=== PATIENT | female | born 1980 | race African-American/Black ===

== ENCOUNTER → 2021-06-16 11:52 | Outpatient (BNVA) | payer OTHER, SELFPAY | PROVIDERS: PCP Internal Medicine; Visit Provider Physician Assistant | DX: E66.01 Morbid (severe) obesity due to excess calories (principal); R40.0 Somnolence | CPT/HCPCS: 99202 ==

== ENCOUNTER 2021-06-18 07:44 | Outpatient (REF) | payer OTHER, SELFPAY ==
--- NOTE | ~2021-06-18 | XR_ITS ---
EXAMINATION: XR CHEST CLINICAL INFORMATION: Preprocedure COMPARISON: None TECHNIQUE: 2 views of the chest were obtained. FINDINGS: No significant abnormality is noted involving the heart, lungs, mediastinum, bony thorax or soft tissues. XR/XR chest 2V IMPRESSION: Unremarkable examination.
--- NOTE | 2021-06-18 07:50 | ECG_ITS ---
Test Reason : preop Z01.818 Blood Pressure : / mmHG Vent. Rate : 074 BPM Atrial Rate : 074 BPM P-R Int : 134 ms QRS Dur : 082 ms QT Int : 402 ms P-R-T Axes : 061 015 024 degrees QTc Int : 446 ms Normal sinus rhythm Normal ECG No previous ECGs available Referred By: Soniya Correa Electronically Signed By:SHINE BLACKWELL
[2021-06-18 08:45] LABS: Basophils Percent Auto 0.2 % (0-2); Eosinophils Absolute Auto 0.2 X10*3/uL (0.0-0.4); Eosinophils Percent Auto 2.3 % (0-4); Hematocrit 37.7 % (37-47); Hemoglobin 11.8 g/dl (12.0-16.0); Imm Gran Abs Auto 0.04 X10*3/uL (0.00-0.03); Imm Gran Pct Auto 0.4 % (0.0-0.4); Lymphocytes Absolute Auto 2.6 X10*3/uL (1.2-4.9); Lymphocytes Percent Auto 26.9 % (20-40); MANUAL DIFF FLAG SCAN; Mean Corpuscular HGB Conc 31.3 g/dl (31.0-35.0); Mean Corpuscular Hemoglobin 25.4 pg (27.0-33.0); Mean Corpuscular Volume 81.1 fL (80-98); Monocytes Absolute Auto 0.5 X10*3/uL (0.1-1.2); Monocytes Percent Auto 5.2 % (2-11); Neutrophils Absolute Auto 6.4 X10*3/uL (2.0-8.3); PLT CLUMP 1; Red Blood Count 4.65 X10*6/uL (4.20-5.50); SCAN SMEAR FLAG 1
[2021-06-18 09:03] LABS: White Blood Count 9.8 X10*3/uL (4.8-10.8)
[2021-06-18 09:04] LABS: Platelet Count 192 X10*3/uL (160-400); SLIDE REVIEW VERIFIED
[2021-06-18 09:10] LABS: Alanine Aminotransferase 27 U/L (0-31); Alkaline Phosphatase 122 U/L (39-117); Anion Gap 15 (12-20); Aspartate Amino Transferase 33 U/L (5-31); Bilirubin Total 0.3 mg/dL (0.0-1.0); Blood Urea Nitrogen 9 mg/dL (9-16); C Reactive Protein 3.81 mg/dL (< or = 0.50); Calcium 9.3 mg/dL (8.4-10.2); Carbon Dioxide 23 mmol/L (22-29); Chloride 105 mmol/L (96-108); Cholesterol 177 mg/dL; Estimated Glomerular Filt Rate > 60; Glucose Random 108 mg/dL (60-115); HDL Cholesterol 47 mg/dL; Iron 71 mcg/dL (30-160); LDL Cholesterol Calculated 108 mg/dl; Percent Iron Saturation 18 % (15-50); Potassium 4.6 mmol/L (3.3-5.1); Sodium 138 mmol/L (135-145); Total Iron Binding Capacity 395 mcg/dL (228-428); Total Protein 7.7 g/dL (6.5-8.0); Triglycerides 110 mg/dL; Unsaturated Iron Binding 324 ug/dL
[2021-06-18 09:36] LABS: Ferritin 76 ng/mL (10-122); TSH reflex Free T4 1.55 uIU/mL (0.32-4.0); Vitamin D 25-OH Total 21.4 ng/mL (>30)
[2021-06-18 10:17] LABS: Estimated Average Glucose 117 mg/dL; Hemoglobin A1c % 5.7 %
[2021-06-18 10:23] LABS: Folate 10.7 ng/mL (> or = 4.0); Vitamin B12 450 pg/mL (200-900)
[2021-06-20 10:33] LABS: Calcium (PTHI) 9.4
[2021-06-20 12:07] LABS: H Pylori Breath Test Positive (Negative)
[2021-06-21 13:40] LABS: Zinc 76 mcg/dL (60-130)
[2021-06-23 18:12] LABS: Vitamin A 36 mcg/dL (38-98)
[2021-06-24 16:07] LABS: Vitamin B1 <6 nmol/L (8-30)
== END 2021-06-18 07:45 | disposition home or self-care (01) ==
LOC: HO.XRAY 07:44
PROVIDERS: Visit Provider Physician Assistant
DX: Z01.818 Encounter for other preprocedural examination (principal); E66.01 Morbid (severe) obesity due to excess calories; R40.0 Somnolence; Z11.0 Encounter for screening for intestinal infectious diseases
CPT/HCPCS: 36415; 71046; 80053; 80061; 82306; 82607; 82728; 82746; 83013; 83036; 83525; 83540; 83970; 84425; 84443; 84590; 84630; 85025; 86140; 93005; 99211

== ENCOUNTER → 2021-07-09 08:03 | Outpatient (BNVA) | payer OTHER, SELFPAY | PROVIDERS: Visit Provider Surgery ==

== ENCOUNTER → 2021-07-16 08:04 | Outpatient (BNVA) | payer OTHER, SELFPAY | PROVIDERS: PCP Internal Medicine; Visit Provider Dietitian, Registered | DX: E66.01 Morbid (severe) obesity due to excess calories (principal) | CPT/HCPCS: 97802 ==

== ENCOUNTER → 2021-07-22 07:31 | Outpatient (REF) | payer OTHER, SELFPAY ==
--- NOTE | ~2021-07-22 | FL_ITS ---
EXAMINATION: XR GI SERIES CLINICAL INFORMATION: Obesity. COMPARISON: None TECHNIQUE: Upper GI was performed using thin and thick barium and effervescent granules. FINDINGS: Esophageal motility is normal. No hiatal hernia or reflux is seen. The stomach and duodenum are normal-appearing. No fold thickening, mass, ulcer, or stricture is seen. FLUOROSCOPY TIME: 0.7 minutes DOSE AREA PRODUCT: 10.719 uGy-m2 (microgray-meter squared) FL/FL upper GI series IMPRESSION: Unremarkable examination.
--- NOTE | ~2021-07-22 | US_ITS ---
EXAMINATION: US COMPLETE ABDOMEN WITH LIVER ELASTOGRAPHY CLINICAL INFORMATION: Morbid obesity COMPARISON: None. TECHNIQUE: Real-time imaging of the abdominal viscera. Noninvasive ultrasound liver fibrosis assessment is performed using Terrence ElastPQ point quantification shear wave elastography (pSWE) with a C5-2 MHz transducer. Multiple elastography samples are obtained. FINDINGS: PANCREAS: Obscured by overlying bowel gas ABDOMINAL AORTA: Visualized segments are normal in caliber. INFERIOR VENA CAVA: Visualized portions are normal. LIVER: Hepatomegaly is present. There is diffusely increased echogenicity consistent with fatty infiltration. No focal mass is seen. No intrahepatic bile duct dilatation is present. The right lobe measures 21.2 cm in length. The left lobe measures 15.0 cm in length. Portal flow is hepatopedal Shear wave liver elastography median stiffness is 1.33 m/s (reference: normal median stiffness is 1.3 m/s or less). IQR/median stiffness to assess sampling precision is 0.08 (reference: good quality data set is IQR/median stiffness of 0.15 or less). GALLBLADDER: Normal. The gallbladder is physiologically distended without evidence of stones, sludge, polyps, wall thickening or pericholecystic fluid. COMMON BILE DUCT: Normal in caliber measuring 0.3 cm in diameter. RIGHT KIDNEY: Normal. No hydronephrosis. No renal calculi or focal parenchymal lesions. The kidney measures 13.1 cm in maximum dimension. LEFT KIDNEY: Normal. No hydronephrosis. No renal calculi or focal parenchymal lesions. The kidney measures 12.8 cm in maximum dimension. SPLEEN: Normal. The spleen measures 11.9 cm in maximum dimension. FREE FLUID: None. US/US abdomen comp w elastography IMPRESSION: 1. Hepatomegaly with fatty infiltration. 2. Liver elastography: Measurements are consistent with a high probability of normal liver stiffness. REFERENCE: Society of [employer] in Ultrasound Liver Stiffness Thresholds (2020): LIVER STIFFNESS THRESHOLDS: *Liver Stiffness equal or less than 1.3 m/s: High probability of being normal. *Liver Stiffness less than 1.7 m/s: In the absence of other known clinical signs, rules out compensated advanced chronic liver disease. *Liver Stiffness 1.7-2.1 m/s: Suggestive of compensated advanced chronic liver disease but need further test for confirmation. *Liver Stiffness over 2.1 m/s: Rules in compensated advanced chronic liver disease. *Liver Stiffness over 2.4 m/s: Suggestive of clinically significant portal hypertension. QUALITY OF DATA SET: *IQR/Median value equal or less than 0.15 implies a quality data set. *IQR/Median value over 0.15 implies a poor quality data set. SIGNIFICANT CHANGE FROM PRIOR EXAM: Significant change if liver stiffness measurement is 10% or greater from prior exam. OTHER CONSIDERATIONS: The stage of liver fibrosis may be overestimated in the setting of acute hepatitis, liver inflammation, elevated liver function tests, hepatic vascular congestion, obstructive cholestasis, non-fasting state, and infiltrative diseases such as amyloidosis and lymphoma. In some patients with NAFLD, the liver stiffness thresholds for compensated advanced chronic liver disease may be lower. In causes other than viral hepatitis and NAFLD, liver stiffness thresholds are not well established.
== END ==
LOC: HO.SL 07:31
PROVIDERS: Visit Provider Surgery
DX: Z01.818 Encounter for other preprocedural examination (principal); K21.9 Gastro-esophageal reflux disease without esophagitis; E66.9 Obesity, unspecified
CPT/HCPCS: 74240; 76705; 76981; 95806

== ENCOUNTER 2021-07-30 14:07 | Outpatient (REF) | payer OTHER, SELFPAY ==
[2021-08-01 12:14] LABS: H Pylori Breath Test Negative (Negative)
== END 2021-07-30 14:08 | disposition home or self-care (01) ==
LOC: CF 14:07
PROVIDERS: Physician Assistant; Visit Provider Surgery
DX: A04.8 Other specified bacterial intestinal infections (principal)
CPT/HCPCS: 36415; 83013; 99211

== ENCOUNTER → 2021-08-08 08:10 | Outpatient (BNVA) | payer OTHER, SELFPAY | PROVIDERS: Visit Provider Surgery ==

== ENCOUNTER → 2021-08-19 08:08 | Outpatient (BNVA) | payer OTHER, SELFPAY | PROVIDERS: Referring Provider Surgery; Visit Provider Dietitian, Registered ==

== ENCOUNTER → 2021-09-03 08:21 | Outpatient (BNVA) | payer OTHER, SELFPAY | PROVIDERS: Visit Provider Dietitian, Registered | DX: E66.01 Morbid (severe) obesity due to excess calories (principal); Z68.43 Body mass index [BMI] 50.0-59.9, adult | CPT/HCPCS: 97803 ==

== ENCOUNTER → 2021-09-26 08:12 | Outpatient (BNVA) | payer OTHER, SELFPAY | PROVIDERS: Referring Provider Surgery; Visit Provider Dietitian, Registered ==

== ENCOUNTER → 2021-10-01 08:10 | Outpatient (BNVA) | payer OTHER, SELFPAY | PROVIDERS: Referring Provider Surgery; Visit Provider Dietitian, Registered ==

== ENCOUNTER → 2021-10-02 08:15 | Outpatient (BNVA) | payer OTHER, SELFPAY | PROVIDERS: Referring Provider Surgery; Visit Provider Dietitian, Registered | DX: E66.01 Morbid (severe) obesity due to excess calories (principal); Z68.43 Body mass index [BMI] 50.0-59.9, adult | CPT/HCPCS: 97803 ==

== ENCOUNTER → 2021-10-17 12:53 | Outpatient (BNVA) | payer OTHER, SELFPAY | PROVIDERS: Visit Provider Hospitalist | DX: R06.00 Dyspnea, unspecified (principal); R40.0 Somnolence; G47.33 Obstructive sleep apnea (adult) (pediatric) | CPT/HCPCS: 99202 ==

== ENCOUNTER → 2021-10-23 08:28 | Outpatient (BNVA) | payer OTHER, SELFPAY | PROVIDERS: PCP Internal Medicine; Referring Provider Surgery; Visit Provider Dietitian, Registered ==

== ENCOUNTER → 2021-11-27 08:13 | Outpatient (BNVA) | payer OTHER, SELFPAY | PROVIDERS: PCP Internal Medicine; Visit Provider Dietitian, Registered | DX: E66.9 Obesity, unspecified (principal) | CPT/HCPCS: 97803 ==

== ENCOUNTER → 2022-01-08 13:35 | Outpatient (BNVA) | payer OTHER, SELFPAY | PROVIDERS: PCP Internal Medicine; Referring Provider Surgery; Visit Provider Dietitian, Registered | DX: E66.01 Morbid (severe) obesity due to excess calories (principal); Z71.3 Dietary counseling and surveillance | CPT/HCPCS: 97803 ==